=== PATIENT | male | born 1965 | race Caucasian/White ===

== ENCOUNTER 2016-11-09 07:40 | Observation (INO) | payer BC ==
[2016-11-06 13:47] LABS: BASOPHILS 0.2 %; BASOPHILS ABSOLUTE 0.02 10/3/uL (0.0-0.16); EOSINOPHILS 1.8 %; EOSINOPHILS ABSOLUTE 0.18 10/3/uL (0.0-0.53); HEMATOCRIT 43.8 % (40.0-51.0); HEMOGLOBIN 14.8 g/dL (13.6-17.8); IMMATURE GRANULOCYTES 0.3 %; IMMATURE GRANULOCYTES ABSOLUTE 0.03 10/3/uL (0.0-0.11); LYMPHOCYTES ABSOLUTE 2.94 10/3/uL (0.67-4.30); MEAN CORPUS HGB CONC 33.8 g/dL (32.0-36.0); MEAN CORPUSCULAR HEMOGLOB 31.2 pg (26.0-34.0); MEAN PLATELET VOLUME 9.6 fL (9.2-13.0); MONOCYTES 5.7 %; MONOCYTES ABSOLUTE 0.56 10/3/uL (0.21-1.20); NEUTROPHILS ABSOLUTE 6.06 10/3/uL (2.02-8.40); PLATELET COUNT 259 10/3/uL (150-400); RBC DISTRIBUTION WIDTH 13.6 % (12.0-16.0); RED CELL COUNT 4.74 10/6/uL (4.7-6.1); WHITE BLOOD CELLS 9.8 10/3/uL (4.5-10.5)
[2016-11-06 13:49] LABS: MEAN CORPUSCULAR VOLUME 92.4 fL (80-100)
[2016-11-06 13:50] LABS: MANUAL DIFF NO %
[2016-11-06 13:56] LABS: PARTIAL THROMBO TIME 27.2 SEC (22.5-37.2); PROTIME (NOT ORD) 13.2 SEC (12.0-14.5)
[2016-11-06 13:58] LABS: BUN (BLOOD UREA NITROGEN) 11 MG/DL (6-23); CALCIUM, SERUM 8.5 MG/DL (8.5-10.4); CHLORIDE, SERUM 106 MMOL/L (96-112); CO2 (CARBON DIOXIDE) 28 MMOL/L (24-34); GFR AFRICAN AMERICAN 80 ML/MIN (>=60); GFR NON AFRICAN AMERICAN 69 ML/MIN (>=60); GLUCOSE, SERUM 110 MG/DL (60-99); POTASSIUM, SERUM 3.6 MMOL/L (3.5-5.3); SODIUM, SERUM 144 MMOL/L (135-148)
--- NOTE | ~2016-11-09 | OP ---
Record Of Operation [facility] [address] [place]. [address] NAME: ANATOLIY FLORES : 61 STATUS : REG [facility] PAT#: [id number] AGE: 51 ADM/REG DATE : 11/09/16 MR#: [id number] REPORT SERV DATE: 11/09/16 DICTATED BY: BONIFACIO STEVENSON DATE: 11/09/16 REPORT STATUS : Draft TRANSCRIBED BY: MODL DATE: 11/09/16 DATE OF PROCEDURE: 11/09/2016 PREOPERATIVE DIAGNOSIS: Bladder tumor. POSTOPERATIVE DIAGNOSIS: Bladder tumor plus probable tumor in the distal right ureter as well. PROCEDURE PERFORMED: Cystoscopy, bilateral retrograde pyelogram, bilateral ureteral stent insertion, TURBT of a greater than 5 cm tumor, hot loop biopsy of prostatic urethra. SURGEON: Bonifacio Stevenson M.D. ANESTHESIA: General. ESTIMATED BLOOD LOSS: Less than 50 mL. INDICATIONS: This is a 51-year-old white male with a history of gross hematuria. He has been found to have multifocal urothelial tumor on office cystoscopy, and we are planning TURBT. Risks of infection, bleeding, failure, and need for further surgery have been discussed. PROCEDURE IN DETAIL: The patient was taken to the operating room and underwent a general anesthetic. He was placed in a lithotomy position on the table, and his external genitalia were sterilely prepped and draped. The 22-Lao cystoscope sheath with 30-degree lens was inserted under direct vision per urethra with the aid of the video monitor. The anterior urethra was normal. The prostate was moderately enlarged with mild lateral lobe occlusion and a moderately elevated bladder neck. There was a question of a tiny urothelial lesion in the floor of the prostatic urethra. The bladder was also inspected. There was obvious papillary tumor at the prostatovesical junction almost circumferentially. There was tumor involving the trigonal region of the bladder obscuring both orifices. The tumor carried up the right wall and it was also present on the anterior wall and right posterior wall as well. I then dilated the urethra to 30-Lao and placed a 28-Lao resectoscope sheath with [place] obturator. The hot loop was used to resect the tumor around the bladder neck and at the right prostatic vesicle junction and right anterior wall. I eventually was able to see what I thought may have been bilateral orifices. I was able to advance Pollack catheters up through both of these orifices and retrograde pyelograms were obtained showing nondilated kidneys and normal looking ureters. On the right, it looked like there may have been tumor actually into the ureteral orifice. A guidewire was placed up into the right kidney and a 6-Lao x 28 cm contour stent was advanced over the guidewire such that the proximal end of the stent was observed to coil in the pelvis of the kidney under fluoroscopic guidance. The distal end of the stent was visually observed to coil in the bladder following removal of the guidewire. Similarly, a guidewire was advanced up into the collecting system of the left kidney and a 6-Lao x 28 cm contour stent was placed there in an identical fashion with the coil of the stent noted in the renal pelvis fluoroscopically and the stent was observed to coil visually in the bladder. The hot loop Record Of [facility] [address] [facility] [place]. [address] NAME: ANATOLIY FLORES : 61 STATUS : REG [facility] PAT#: [id number] AGE: 51 ADM/REG DATE : 11/09/16 MR#: [id number] REPORT SERV DATE: 11/09/16 DICTATED BY: BONIFACIO STEVENSON DATE: 11/09/16 REPORT STATUS : Draft TRANSCRIBED BY: NOBLE DATE: 11/09/16 was then used to resect all the tumor around the trigonal region. This included resection right up to the stents on both sides. When all of the visible tumor had been resected, the rollerball was used to thoroughly fulgurate a quite large resection bed spanning the most of the floor of the bladder, up to and including around both orifices, almost circumferentially around the bladder neck extending into the prostate a little bit and a portion of the anterior bladder wall. A hot loop biopsy had been taken of the floor of the prostatic urethra and sent separately and this area was fulgurated also. We had excellent hemostasis. At that point, the [employer] evacuator was used to remove all tumor chips from the bladder. The endoscopic apparatus was removed from the bladder and a 20-Lao 3-way Little catheter was placed to continuous irrigation with return of essentially clear urine. The patient tolerated the procedure well and was taken to recovery in stable condition. DOMINGA/NOBLE Bonifacio Stevenson M.D. / [id number] CC: Bonifacio Stevenson M.D.
[~2016-11-09 07:40] MED LIST: ALEVE220 MG PO
[2016-11-10 06:38] LABS: BASOPHILS 0.1 %; BASOPHILS ABSOLUTE 0.01 10/3/uL (0.0-0.16); EOSINOPHILS 0.3 %; EOSINOPHILS ABSOLUTE 0.04 10/3/uL (0.0-0.53); HEMATOCRIT 41.9 % (40.0-51.0); IMMATURE GRANULOCYTES 0.3 %; IMMATURE GRANULOCYTES ABSOLUTE 0.04 10/3/uL (0.0-0.11); LYMPHOCYTES 15.2 %; LYMPHOCYTES ABSOLUTE 2.38 10/3/uL (0.67-4.30); MEAN CORPUS HGB CONC 33.4 g/dL (32.0-36.0); MEAN CORPUSCULAR HEMOGLOB 31.2 pg (26.0-34.0); MEAN CORPUSCULAR VOLUME 93.3 fL (80-100); MEAN PLATELET VOLUME 9.7 fL (9.2-13.0); MONOCYTES 7.3 %; MONOCYTES ABSOLUTE 1.14 10/3/uL (0.21-1.20); NEUTROPHILS 76.8 %; NEUTROPHILS ABSOLUTE 12.03 10/3/uL (2.02-8.40); PLATELET COUNT 244 10/3/uL (150-400); RED CELL COUNT 4.49 10/6/uL (4.7-6.1); WHITE BLOOD CELLS 15.6 10/3/uL (4.5-10.5)
[2016-11-10 06:39] LABS: MANUAL DIFF NO %
[2016-11-10 06:49] LABS: BUN (BLOOD UREA NITROGEN) 10 MG/DL (6-23); CALCIUM, SERUM 7.8 MG/DL (8.5-10.4); CHLORIDE, SERUM 104 MMOL/L (96-112); CO2 (CARBON DIOXIDE) 27 MMOL/L (24-34); CREATININE 1.02 MG/DL (0.70-1.30); GFR AFRICAN AMERICAN 97 ML/MIN (>=60); GFR NON AFRICAN AMERICAN 84 ML/MIN (>=60); POTASSIUM, SERUM 3.8 MMOL/L (3.5-5.3); SODIUM, SERUM 138 MMOL/L (135-148)
[2016-11-10 06:50] LABS: GLUCOSE, SERUM 140 MG/DL (60-99)
[2016-11-10] MEDS ORDERED: PCET PO (15:42)
[2016-11-10] MEDS ORDERED: DITROXL5 PO (15:42)
[2016-11-10] MEDS ORDERED: PYR200 PO (15:43)
[2016-11-10] MEDS ORDERED: LEVAQUIN750 MG PO (15:43)
[2016-12-22] MEDS ORDERED: T PO (11:20)
== END 2016-11-10 18:19 | disposition home or self-care (01) ==
LOC: SDC 07:40 → 4SO 17:32
PROVIDERS: Anesthesiology; Urology
PROC: 0TBB8ZX Excision of Bladder, Via Natural or Artificial Opening Endoscopic, Diagnostic (ICD-10-PCS; principal; 2016-11-09 10:00)
PROC: 0TBD8ZX Excision of Urethra, Via Natural or Artificial Opening Endoscopic, Diagnostic (ICD-10-PCS; 2016-11-09 10:00)
PROC: 0T788DZ Dilation of Bilateral Ureters with Intraluminal Device, Via Natural or Artificial Opening Endoscopic (ICD-10-PCS; 2016-11-09 10:00)
DX: D49.4 Neoplasm of unspecified behavior of bladder (principal); J44.9 Chronic obstructive pulmonary disease, unspecified; F17.210 Nicotine dependence, cigarettes, uncomplicated
CPT/HCPCS: 71020; 74420; 80048; 85025; 85610; 85730; 88305; 88307; 93005; 96374; 96376; A9270-GY; C1758; G0378; J0360; J2250; J2270; J2405; J2710; J3010; Q9967

== ENCOUNTER 2016-12-27 08:43 | Inpatient (IN) | payer BC ==
[2016-12-25 14:19] LABS: BASOPHILS 0.2 %; BASOPHILS ABSOLUTE 0.02 10/3/uL (0.0-0.16); EOSINOPHILS 1.4 %; EOSINOPHILS ABSOLUTE 0.16 10/3/uL (0.0-0.53); HEMATOCRIT 42.5 % (40.0-51.0); HEMOGLOBIN 13.8 g/dL (13.6-17.8); IMMATURE GRANULOCYTES 0.4 %; IMMATURE GRANULOCYTES ABSOLUTE 0.05 10/3/uL (0.0-0.11); LYMPHOCYTES 24.1 %; LYMPHOCYTES ABSOLUTE 2.74 10/3/uL (0.67-4.30); MEAN CORPUS HGB CONC 32.5 g/dL (32.0-36.0); MEAN CORPUSCULAR HEMOGLOB 30.4 pg (26.0-34.0); MEAN CORPUSCULAR VOLUME 93.6 fL (80-100); MEAN PLATELET VOLUME 9.7 fL (9.2-13.0); MONOCYTES 5.6 %; MONOCYTES ABSOLUTE 0.64 10/3/uL (0.21-1.20); NEUTROPHILS 68.3 %; NEUTROPHILS ABSOLUTE 7.74 10/3/uL (2.02-8.40); PLATELET COUNT 286 10/3/uL (150-400); RBC DISTRIBUTION WIDTH 14.4 % (12.0-16.0); RED CELL COUNT 4.54 10/6/uL (4.7-6.1); WHITE BLOOD CELLS 11.4 10/3/uL (4.5-10.5)
[2016-12-25 14:21] LABS: MANUAL DIFF NO %
[2016-12-25 14:35] LABS: BUN (BLOOD UREA NITROGEN) 8 MG/DL (6-23); CALCIUM, SERUM 9.4 MG/DL (8.5-10.4); CHLORIDE, SERUM 107 MMOL/L (96-112); CO2 (CARBON DIOXIDE) 26 MMOL/L (24-34); GFR AFRICAN AMERICAN 99 ML/MIN (>=60); GFR NON AFRICAN AMERICAN 86 ML/MIN (>=60); GLUCOSE, SERUM 102 MG/DL (60-99); SODIUM, SERUM 136 MMOL/L (135-148)
--- NOTE | ~2016-12-27 | DS ---
Discharge Summary [facility] [address] [place]. [address] NAME: ANATOLIY FLORES : 61 STATUS : DIS IN PAT#: [id number] AGE: 51 ADM/REG DATE : 12/27/16 MR#: [id number] REPORT SERV DATE: 01/13/17 DICTATED BY: CLIFFORD PACHECO DATE: 01/12/17 REPORT STATUS : Draft TRANSCRIBED BY: NOBLE DATE: 01/12/17 Data Collection from hospitalization DISCHARGE DIAGNOSES: 1. Bladder cancer T2 N0 M0. 2. Sleep apnea. 3. Tobacco use. 4. History of kidney stones. CONSULTATIONS: Arturo Haro M.D. PROCEDURES PERFORMED: 1. Radical cystoprostatectomy, bilateral pelvic lymphadenectomy, ileal conduit, urinary diversion on 12/27/2016. 2. Small bowel resection for creation of ileal conduit, enteroenterostomy with side-to- side stapled anastomosis on 12/27/2016. PATHOLOGY: Urinary bladder and prostate radical cystoprostatectomy - urinary bladder - status post transurethral resection for invasive urothelial carcinoma. Focal residual carcinoma identified. Prostate - adenocarcinoma lymph nodes, right pelvic wall and right obturator incisions - 5 lymph nodes negative for metastatic carcinoma (0/5). Lymph nodes, left common iliac excision - 4 lymph nodes negative for metastatic carcinoma (0/4). Lymph nodes, left pelvic wall and left obturator excision - 4 lymph nodes negative for metastatic carcinoma (0/4). MEDICATIONS: Tylenol 650 mg every four hours as needed, Aleve 220 mg every 12 hours as needed, Ditropan 5 mg daily, Percocet one to two tablets every four hours as needed, and Pyridium 200 mg three times a day as needed. CONDITION AT DISCHARGE: Stable. DISPOSITION: The patient was discharged home to be followed by home health care on a clear liquid diet that would be advanced as tolerated and activities as instructed. He would follow up with me on 01/17/2017. HOSPITAL COURSE: This is a 51-year-old man who has had lingering gross hematuria. He had undergone a cystoscopy with findings of a papillary tumor at the bladder base and within the prostatic urethra. CT scan showed no gross metastatic disease in the abdomen or pelvis. His tumor was low-grade, but muscle invasive. Treatment options were discussed and it was elected to proceed with surgical intervention. He was admitted to the hospital at this time for further evaluation and treatment. Upon admission, the patient was taken to the operating room by myself and Dr. Arturo Haro where he underwent the above-mentioned procedures. He tolerated these well, and there were no complications. On postop day #1, his abdomen was soft. He was transferred to the floor. He remained n.p.o. NG tube was in place. IV fluids were continued. We were awaiting return of bowel function. His incisions remained clean, dry, and intact. On 12/30/2016, the NG tube was removed. He was allowed ice chips only. Dulcolax was provided. Discharge Summary [facility] [id number] [place]. [address] NAME: ANATOLIY FLORES : 61 STATUS : DIS IN PAT#: [id number] AGE: 51 ADM/REG DATE : 12/27/16 MR#: [id number] REPORT SERV DATE: 01/13/17 DICTATED BY: CLIFFORD PACHECO DATE: 01/12/17 REPORT STATUS : Draft TRANSCRIBED BY: NOBLE DATE: 01/12/17 Hydralazine was going to be given as needed. On 01/01/2017, he did have a bowel movement. His abdomen was soft. He was passing flatus. Over the next couple of days, he began to tolerate liquids. We advanced his diet. Discharge planning was performed. On 01/03/2017, he felt well. He had no complaints of pain. His abdomen was soft and nontender. Discharge instructions were given. Due to his improved and stable condition, he was discharged home to be followed by home health care with the above-stated instructions. Information collected by: Fabi Shah I submit the above information as my discharge summary. TG/MODL Clifford Pacheco M.D. / [id number] CC: Oracio Friedman M.D.
--- NOTE | ~2016-12-27 | HP ---
History And Physical [facility] [id number] [place]. [address] NAME: ANATOLIY BYRNES : 61 STATUS : ADM IN LOCATED WITHIN [facility]#: [id number] AGE: 51 ADM/REG DATE : 12/27/16 MR#: [id number] REPORT SERV DATE: 12/27/16 DICTATED BY: CLIFFODR PACHECO DATE: 12/27/16 REPORT STATUS : Draft TRANSCRIBED BY: MODL DATE: 12/27/16 DATE OF ADMISSION: 12/27/2016 CHIEF COMPLAINT: Bladder cancer; T2, N0, M0. HISTORY OF PRESENT ILLNESS: Mr. Byrnes is a 51-year-old, who developed gross hematuria earlier this year. He was evaluated by Dr. Julian Boone, where a bladder tumor was found at the bladder neck and prostatic urethra. He underwent TURBT. Pathology findings showed a low-grade muscle invasive bladder cancer, nested variant. On staging CT, there was no pelvic adenopathy. He did have tiny nonobstructing left kidney stones. PAST MEDICAL HISTORY: Sleep apnea and kidney stones. ALLERGIES: NONE KNOWN. MEDICATIONS: Myrbetriq, oral narcotic, and finasteride. FAMILY HISTORY: Breast cancer. SOCIAL HISTORY: Single. Smoked up through this year, is trying to quit. Two adult children are with him today. REVIEW OF SYSTEMS: Positive for constipation and urgency as well as chronic back pain. No fevers, chills, nausea, vomiting, or chest pain. He does have exertional shortness of breath. PHYSICAL EXAMINATION: VITAL SIGNS: Per intake sheet. ABDOMEN: Soft, protuberant. No palpable mass. No rebound. No guarding. No prior incisions. Right-sided stoma sites are identified x2. NEUROLOGIC: He is oriented to person, place, time, and situation. HEENT: Sclerae anicteric. LUNGS: Clear. HEART: Regular rate and rhythm. EXTREMITIES: No lower extremity edema. LYMPHATIC: No supraclavicular or inguinal adenopathy. LABORATORY DATA: PSA from 10/17/2016 was normal at 0.98. Creatinine was normal at 1.0. IMAGING: CT scan dated 10/23/2016 shows nonobstructing left kidney stones. There is no retroperitoneal adenopathy or hydronephrosis. Incidental finding of a retroaortic left renal vein is present. No pelvic adenopathy. PATHOLOGY: 1. Low-grade muscle invasive bladder cancer (muscularis propria invasion). 2. Prostatic urethral biopsy shows nested-variant urothelial carcinoma without muscularis History And Physical [address] [address] NAME: ANATOLIY BYRNES : 61 STATUS : ADM IN PAT#: [id number] AGE: 51 ADM/REG DATE : 12/27/16 MR#: [id number] REPORT SERV DATE: 12/27/16 DICTATED BY: CLIFFORD PACHECO DATE: 12/27/16 REPORT STATUS : Draft TRANSCRIBED BY: NOBLE DATE: 12/27/16 propria in the specimen. IMPRESSION: Low-grade T2 bladder cancer, nested variant (T2, N0, M0). PLAN: The patient has probably low-grade cancer. I discussed neoadjuvant chemotherapy with him. As he has a low-grade tumor with no evidence of any local extension or regional metastatic disease, he did not agree to now pursue neoadjuvant chemotherapy. He is admitted for radical cystoprostatectomy. If there is a close or positive prostatic apex margin, then a formal urethrectomy would be performed via a perineal incision. He understands the risk of surgery including bleeding, infection, tumor recurrence, stomal complication, wound complication, and cardiovascular events. He understands that erectile dysfunction is almost certain after this surgery. He gives his permission to proceed. I will have Dr. Arturo Haro to perform the ileal harvest. MYRNA/NOBLE Clifford Pacheco M.D. / [id number] CC: Clifford Pacheco M.D.
--- NOTE | ~2016-12-27 | OP ---
Record Of Operation [facility] [address] [place]. [address] NAME: ANATOLIY BYRNES : 61 STATUS : ADM IN PAT#: [id number] AGE: 51 ADM/REG DATE : 12/27/16 MR#: [id number] REPORT SERV DATE: 12/28/16 DICTATED BY: CLIFFORD PACHECO DATE: 12/27/16 REPORT STATUS : Draft TRANSCRIBED BY: MODL DATE: 12/27/16 DATE OF PROCEDURE: 12/27/2016 PREOPERATIVE DIAGNOSIS: Bladder cancer, T2 N0 M0. POSTOPERATIVE DIAGNOSIS: Bladder cancer, T2 N0 M0. PROCEDURES PERFORMED: 1. Radical cystoprostatectomy. 2. Bilateral pelvic lymphadenectomy. 3. Ileal conduit urinary diversion. SURGEON: Clifford Pacheco M.D. ANESTHESIA: General. BLOOD LOSS: 400 mL. SPECIMEN: 1. Bladder with prostate. 2. Bilateral pelvic lymph nodes. COMPLICATIONS: None. DRAINS: Barry-Saravia bilateral 7-Vietnamese single J ureteral stents and G-tube. Ileal harvest was performed by Dr. Arturo Haro. INDICATIONS: Mr. Byrnes is a 51-year-old with lingering gross hematuria. He underwent cystoscopy with findings of a papillary bladder tumor at the bladder base and within the prostatic urethra. CT scan shows no gross metastatic disease in the abdomen or pelvis. His tumor was low-grade, but muscle invasive. He presents for radical cystoprostatectomy. TECHNIQUE: Informed consent was obtained. He was brought to the operating room. TAP block was performed. Preop general endotracheal anesthesia was administered. The lower abdomen, genitals, and perineum were shaved, prepped, and draped in the supine position with the bed flexed and the NG tube was placed. A lower midline incision was made from the umbilicus to the pubic symphysis. The fascia was divided in the midline. The peritoneal cavity was entered. There was no gross peritoneal disease. The space of Retzius was dissected bluntly. The anterior peritoneal reflection was divided on the right and the left. Right and left vasa were divided. The right and left ureters were identified coursing over the iliac artery. These were circumferentially mobilized down to their insertion into the bladder. There was significant periureteral edema. The patient had ureteral stents and TURBT and these have been removed two weeks ago or so. The right and left ureters were divided and the distal stumps oversewn with 0 Vicryl. Both Record Of Operation [facility] [address] [place]. [address] NAME: ANATOLIY BYRNES : 61 STATUS : ADM IN PAT#: [id number] AGE: 51 ADM/REG DATE : 12/27/16 MR#: [id number] REPORT SERV DATE: 12/28/16 DICTATED BY: CLIFFORD PACHECO DATE: 12/27/16 REPORT STATUS : Draft TRANSCRIBED BY: MODGladys DATE: 12/27/16 ureters were spatulated for 1 cm and stay sutures placed. Backbleeding stitch was placed at the superficial dorsal vein with 0 Vicryl. I divided the superior and inferior vesicle pedicles with blunt dissection and LigaSure. Additional hemostasis was obtained with clips. In the cul-de-sac, the peritoneum was incised and bluntly dissected the seminal vesicles and bladder base off the perirectal fat. Clips and Bovie were used for this. The prostatic pedicles were divided. No attempt was made at nerve-sparing. At this point, I incised the endopelvic fascia on the right and left. I dissected out to the prostatic apex/membranous urethra. The dorsal venous complex was divided with the LigaSure. I divided the anterior aspect of the urethra with Bovie. The Little catheter was delivered into the pelvis. I divided the posterior urethra and the rectal urethralis. The specimen was freed, and it was sent for frozen section of the prostatic apex. Frozen section of the prostatic apex showed no urothelial malignancy in this area. I performed a pelvic lymphadenectomy on the right. Node of Hollister was the distal extent, the pelvic sidewall was a lateral extent. Proximal extent was the bifurcation of the iliacs. There was no gross adenopathy. The spatulated left ureter was brought along the sacral promontory into the right lower quadrant. The left pelvic lymphadenectomy was performed in a similar fashion. There was no gross adenopathy. Lymphostasis was obtained with the clips. Notes from the external iliac, internal iliac, and obturator fossa were obtained on both sides. Dr. Arturo Haro harvested a suitable segment of the terminal ilium. After bowel continuity was re-established, I oversewed the retroperitoneal end of the conduit. The stomal end of the conduit was opened and jonathan removed. Enteric contents were evacuated with irrigation and suction. The left ureter was anastomosed in a Masoud fashion with interrupted 4-0 PDS suture to the retroperitoneal end of the conduit. The anastomosis was tension free and ifqcnj-bl-[id number], placed a 7-Vietnamese stent prior to completing the anastomosis. The right ureter was then anastomosed in a similar fashion, approximately 3 cm distal along the conduit. Again, this was a 4-0 PDS interrupted anastomosis. Again, a stent was placed. I placed a drain through a separate stab incision in the left lower quadrant. At the previously marked stoma site in the right paramedian position, I excised column of skin and subcutaneous tissue down to the fascia. The fascia was opened linearly, muscle splitting was performed, posterior fascia was divided with Bovie. This was a two fingerbreadth opening. I delivered the stents and the conduit through the incision. The conduit was secured to the anterior rectus with two separate interrupted 2-0 Vicryl. The stoma was then matured in a upper mattaponi fashion with interrupted 3-0 Vicryl. The stents were resecured at the skin level with a 4-0 nylon. I irrigated the wounds. Sponge and needle counts were Record Of Operation [address] [address] NAME: ANATOLIY BYRNES : 61 STATUS : ADM IN [facility]#: [id number] AGE: 51 ADM/REG DATE : 12/27/16 MR#: [id number] REPORT SERV DATE: 12/28/16 DICTATED BY: CLIFFORD PACHECO DATE: 12/27/16 REPORT STATUS : Draft TRANSCRIBED BY: NOBLE DATE: 12/27/16 correct. The abdominal wall fascia was closed with a running #1 Vicryl suture with interrupted 0 PDS suture. The wound was irrigated. The skin was closed with subcuticular Monocryl. He tolerated the procedure. He was taken to the recovery room and extubated in satisfactory condition. The plan is for four to five days of NG tube drainage to allow for recovery of bowel function. MYRNA/NOBLE Clifford Pacheco M.D. / [id number] CC: Clifford Pacheco M.D.
--- NOTE | ~2016-12-27 | OP ---
Record Of Operation [facility] [address] [place]. [address] NAME: ANATOLIY FLORES : 61 STATUS : ADM IN PAT#: [id number] AGE: 51 ADM/REG DATE : 12/27/16 MR#: [id number] REPORT SERV DATE: 12/29/16 DICTATED BY: OMAR CONDON DATE: 12/28/16 REPORT STATUS : Draft TRANSCRIBED BY: MODL DATE: 12/28/16 DATE OF PROCEDURE: 12/27/2016 PREOPERATIVE DIAGNOSIS: Bladder cancer. POSTOPERATIVE DIAGNOSIS: Bladder cancer. PROCEDURES: 1. for creation of ileal conduit. 2. Enteroenterostomy with nyyo-nx-wvgt stapled anastomosis. SURGEON: Omar Condon M.D. RESIDENT: Laci Marin MD. ANESTHESIA: General. Please see Urology's dictation for total fluids and blood loss. DESCRIPTION OF PROCEDURE: Please see the Urology's dictation for initial portion of the procedure. Upon entering operating room, the patient was noted to have already had undergone a laparotomy with bladder resection. The ileum was identified 15 cm from the ileum. A window was created in the mesentery and a NAVA 75 stapler was used to divide the distal ileum 15 cm from the ileocolic valve. Once this was done, it was measured 18 cm from distal margin and made an 18 cm long ileal conduit. A window was created in the mesentery again and NAVA 75 stapler was used to divide this valve at this time. The mesentery was partially divided to mobilize the new conduit with an energy device. At this portion, a cnzn-ck-jpaw stapled anastomosis was performed with a NAVA 75 stapler to create the common channel and the end was closed with a TA 90 stapler. The anastomosis was performed antimesenteric border to antimesenteric border. The distal staple line were oversewn with 3 0 silk. The mesentery was closed to prevent any hernias. At this point of the procedure, the surgery was turned over back to the Urology team. DICTATED BY: Laci Marin MD CB/NOBLE Omar Condon M.D. / [id number] CC: Christopher Hilario M.D.
[~2016-12-27 08:43] MED LIST changes: +DITROXL5 PO; +LEVAQUIN750 MG PO; +PCET PO; +PYR200 PO; +T PO
[2016-12-28 05:05] LABS: BASOPHILS 0.1 %; BASOPHILS ABSOLUTE 0.01 10/3/uL (0.0-0.16); EOSINOPHILS 0.1 %; EOSINOPHILS ABSOLUTE 0.01 10/3/uL (0.0-0.53); HEMOGLOBIN 12.3 g/dL (13.6-17.8); IMMATURE GRANULOCYTES 0.3 %; IMMATURE GRANULOCYTES ABSOLUTE 0.04 10/3/uL (0.0-0.11); LYMPHOCYTES 15.5 %; MEAN CORPUS HGB CONC 32.7 g/dL (32.0-36.0); MEAN CORPUSCULAR HEMOGLOB 30.9 pg (26.0-34.0); MEAN CORPUSCULAR VOLUME 94.5 fL (80-100); MEAN PLATELET VOLUME 9.6 fL (9.2-13.0); MONOCYTES 9.1 %; MONOCYTES ABSOLUTE 1.24 10/3/uL (0.21-1.20); NEUTROPHILS 74.9 %; NEUTROPHILS ABSOLUTE 10.18 10/3/uL (2.02-8.40); PLATELET COUNT 245 10/3/uL (150-400); RBC DISTRIBUTION WIDTH 14.4 % (12.0-16.0); RED CELL COUNT 3.98 10/6/uL (4.7-6.1); WHITE BLOOD CELLS 13.6 10/3/uL (4.5-10.5)
[2016-12-28 05:06] LABS: HEMATOCRIT 37.6 % (40.0-51.0); MANUAL DIFF NO %
[2016-12-28 05:19] LABS: BUN (BLOOD UREA NITROGEN) 11 MG/DL (6-23); CHLORIDE, SERUM 107 MMOL/L (96-112); CO2 (CARBON DIOXIDE) 26 MMOL/L (24-34); GFR AFRICAN AMERICAN 88 ML/MIN (>=60); GFR NON AFRICAN AMERICAN 76 ML/MIN (>=60); POTASSIUM, SERUM 4.3 MMOL/L (3.5-5.3); SODIUM, SERUM 136 MMOL/L (135-148)
[2016-12-28 05:22] LABS: GLUCOSE, SERUM 140 MG/DL (60-99)
[2016-12-29 05:27] LABS: BASOPHILS 0.1 %; BASOPHILS ABSOLUTE 0.02 10/3/uL (0.0-0.16); EOSINOPHILS 0.3 %; EOSINOPHILS ABSOLUTE 0.05 10/3/uL (0.0-0.53); HEMATOCRIT 37.9 % (40.0-51.0); HEMOGLOBIN 12.1 g/dL (13.6-17.8); IMMATURE GRANULOCYTES 0.3 %; IMMATURE GRANULOCYTES ABSOLUTE 0.04 10/3/uL (0.0-0.11); LYMPHOCYTES 16.6 %; LYMPHOCYTES ABSOLUTE 2.49 10/3/uL (0.67-4.30); MEAN CORPUS HGB CONC 31.9 g/dL (32.0-36.0); MEAN CORPUSCULAR HEMOGLOB 30.4 pg (26.0-34.0); MEAN CORPUSCULAR VOLUME 95.2 fL (80-100); MEAN PLATELET VOLUME 9.6 fL (9.2-13.0); MONOCYTES 12.1 %; MONOCYTES ABSOLUTE 1.82 10/3/uL (0.21-1.20); NEUTROPHILS 70.6 %; PLATELET COUNT 242 10/3/uL (150-400); RBC DISTRIBUTION WIDTH 14.4 % (12.0-16.0); RED CELL COUNT 3.98 10/6/uL (4.7-6.1)
[2016-12-29 05:30] LABS: MANUAL DIFF NO %
[2016-12-29 05:49] LABS: BUN (BLOOD UREA NITROGEN) 8 MG/DL (6-23); CALCIUM, SERUM 8.4 MG/DL (8.5-10.4); CHLORIDE, SERUM 106 MMOL/L (96-112); CO2 (CARBON DIOXIDE) 26 MMOL/L (24-34); CREATININE 0.83 MG/DL (0.70-1.30); GFR AFRICAN AMERICAN 116 ML/MIN (>=60); GFR NON AFRICAN AMERICAN 100 ML/MIN (>=60); GLUCOSE, SERUM 130 MG/DL (60-99); POTASSIUM, SERUM 4.2 MMOL/L (3.5-5.3); SODIUM, SERUM 139 MMOL/L (135-148)
[2016-12-30 06:09] LABS: BASOPHILS 0.1 %; BASOPHILS ABSOLUTE 0.01 10/3/uL (0.0-0.16); EOSINOPHILS 1.3 %; EOSINOPHILS ABSOLUTE 0.17 10/3/uL (0.0-0.53); HEMATOCRIT 35.1 % (40.0-51.0); HEMOGLOBIN 11.5 g/dL (13.6-17.8); IMMATURE GRANULOCYTES 0.2 %; IMMATURE GRANULOCYTES ABSOLUTE 0.03 10/3/uL (0.0-0.11); LYMPHOCYTES 18.7 %; LYMPHOCYTES ABSOLUTE 2.39 10/3/uL (0.67-4.30); MEAN CORPUS HGB CONC 32.8 g/dL (32.0-36.0); MEAN CORPUSCULAR HEMOGLOB 30.5 pg (26.0-34.0); MEAN CORPUSCULAR VOLUME 93.1 fL (80-100); MEAN PLATELET VOLUME 9.6 fL (9.2-13.0); MONOCYTES 9.3 %; MONOCYTES ABSOLUTE 1.19 10/3/uL (0.21-1.20); NEUTROPHILS 70.4 %; NEUTROPHILS ABSOLUTE 9.01 10/3/uL (2.02-8.40); PLATELET COUNT 244 10/3/uL (150-400); RBC DISTRIBUTION WIDTH 14.3 % (12.0-16.0); RED CELL COUNT 3.77 10/6/uL (4.7-6.1); WHITE BLOOD CELLS 12.8 10/3/uL (4.5-10.5)
[2016-12-30 06:18] LABS: BUN (BLOOD UREA NITROGEN) 7 MG/DL (6-23); CALCIUM, SERUM 8.6 MG/DL (8.5-10.4); CHLORIDE, SERUM 103 MMOL/L (96-112); CO2 (CARBON DIOXIDE) 26 MMOL/L (24-34); CREATININE 0.72 MG/DL (0.70-1.30); GFR AFRICAN AMERICAN 123 ML/MIN (>=60); GFR NON AFRICAN AMERICAN 107 ML/MIN (>=60); GLUCOSE, SERUM 127 MG/DL (60-99); POTASSIUM, SERUM 3.5 MMOL/L (3.5-5.3); SODIUM, SERUM 135 MMOL/L (135-148)
[2016-12-30 06:19] LABS: MANUAL DIFF NO %
[2016-12-31 06:22] LABS: HEMATOCRIT 35.3 % (40.0-51.0); HEMOGLOBIN 11.5 g/dL (13.6-17.8)
[2016-12-31 06:27] LABS: BUN (BLOOD UREA NITROGEN) 12 MG/DL (6-23); CALCIUM, SERUM 8.3 MG/DL (8.5-10.4); CHLORIDE, SERUM 108 MMOL/L (96-112); CO2 (CARBON DIOXIDE) 23 MMOL/L (24-34); CREATININE 0.77 MG/DL (0.70-1.30); GFR AFRICAN AMERICAN 120 ML/MIN (>=60); GFR NON AFRICAN AMERICAN 104 ML/MIN (>=60); GLUCOSE, SERUM 107 MG/DL (60-99); POTASSIUM, SERUM 3.7 MMOL/L (3.5-5.3); SODIUM, SERUM 140 MMOL/L (135-148)
[2017-01-01 05:40] LABS: BUN (BLOOD UREA NITROGEN) 13 MG/DL (6-23); CALCIUM, SERUM 8.4 MG/DL (8.5-10.4); CHLORIDE, SERUM 108 MMOL/L (96-112); CO2 (CARBON DIOXIDE) 23 MMOL/L (24-34); CREATININE 0.88 MG/DL (0.70-1.30); GFR AFRICAN AMERICAN 114 ML/MIN (>=60); GFR NON AFRICAN AMERICAN 98 ML/MIN (>=60); GLUCOSE, SERUM 104 MG/DL (60-99); POTASSIUM, SERUM 3.9 MMOL/L (3.5-5.3); SODIUM, SERUM 138 MMOL/L (135-148)
[2017-01-03] MEDS ORDERED: PCET PO (13:59)
== END 2017-01-03 14:22 | disposition home health service (06) | DRG 655 ==
LOC: SDC/OF 08:43 → MIC 20:43 → 4SO 12-28 16:34
PROVIDERS: Specialist; Urology
PROC: 07TC0ZZ Resection of Pelvis Lymphatic, Open Approach (ICD-10-PCS; 2016-12-27)
PROC: 0T180ZC Bypass Bilateral Ureters to Ileocutaneous, Open Approach (ICD-10-PCS; 2016-12-27)
PROC: 07BC0ZX Excision of Pelvis Lymphatic, Open Approach, Diagnostic (ICD-10-PCS; 2016-12-27)
PROC: 0DBB0ZZ Excision of Ileum, Open Approach (ICD-10-PCS; 2016-12-27)
PROC: 0VT00ZZ Resection of Prostate, Open Approach (ICD-10-PCS; principal; 2016-12-27 10:45)
PROC: 0TTB0ZZ Resection of Bladder, Open Approach (ICD-10-PCS; 2016-12-27 10:45)
DX: C67.0 Malignant neoplasm of trigone of bladder (principal); C61 Malignant neoplasm of prostate; C67.5 Malignant neoplasm of bladder neck; N20.0 Calculus of kidney; Z79.899 Other long term (current) drug therapy; F17.210 Nicotine dependence, cigarettes, uncomplicated; G47.33 Obstructive sleep apnea (adult) (pediatric); R31.0 Gross hematuria; Z79.891 Long term (current) use of opiate analgesic; G89.29 Other chronic pain; M54.9 Dorsalgia, unspecified; N39.41 Urge incontinence; R35.0 Frequency of micturition; R39.14 Feeling of incomplete bladder emptying; R39.12 Poor urinary stream
CPT/HCPCS: 36415; 74000; 80048; 83735; 85014; 85018; 85025; 86850; 86900; 86901; 87641; 88307; 88309; 88331; 88332; 93005; A9270-GY; C2617; J0360; J0694; J2250; J2270; J2370; J2405; J2710; J2795; J3010; P9045